=== PATIENT | female | born 1950 | race Caucasian/White ===

== ENCOUNTER → 2020-12-11 11:04 | Outpatient (CLI) | payer OTHER, SELFPAY ==
--- NOTE | ~2020-12-11 | DEXA_ITS ---
Bone Density Report Name: Christa Guajardo Age: 69 Sex: Female Ethnicity: White Date of : 1950 Indication: postmenopausal; screening for osteoporosis; height loss; Referring Provider: CATHRYN GREER D.O. Study: Bone densitometry was performed. Exam Date: December 11, 2020 Accession number: [id number] Bone Density: Region BMD T-score Z-score Classification AP Spine (L1, L2) 1.280 2.7 4.6 Normal Femoral Neck (Left) 0.914 0.6 2.3 Normal Total Hip (Left) 1.179 1.9 3.4 Normal Femoral Neck (Right) 0.900 0.5 2.2 Normal Total Hip (Right) 1.134 1.6 3.0 Normal Total Hip Mean 1.157 1.8 3.2 Normal World Health Organization criteria for BMD impression classify patients as: Normal (T-score at or above -1.0), Osteopenia (T-score between -1.0 and -2.5), or Osteoporosis (T-score at or below -2.5). 10-year Fracture Risk: FRAX not reported because: All T-scores for Spine Total, Hip Total, Femoral Neck at or above -1.0 Previous Exams: Region Exam Age BMD T-score BMD Change BMD Change Date g/cm2 vs Baseline vs Previous AP Spine(L1, L2) 12/11/2020 69 1.280 2.7 -0.056* -0.056* 02/11/2012 61 1.336 3.2 Total Hip(Left) 12/11/2020 69 1.179 1.9 -0.016 -0.016 02/11/2012 61 1.196 2.1 Total Hip(Right) 12/11/2020 69 1.134 1.6 -0.025 -0.025 02/11/2012 61 1.159 1.8 *Denotes significance at 95% confidence level, LSC for AP Spine = 0.022 g/cm2, LSC for Total Hip = 0.027 g/cm2 Clinical Information Provided by Patient: Has used the following medications: Calcium Patient maximum height was 70.50 Menopause Age: 56 No regular weight bearing exercise Does not regularly consume dairy products Drinks caffeinated beverages Onset of menses at age 14 Number of children 3 Impression: The patient has normal bone mass. The BMD for the AP Spine(L1, L2) decreased, changing by -0.056 since the last DXA exam. Discussion: LOW RISK OF FRACTURE; BONE DENSITY IS WELL ABOVE THE MINIMUM DESIRABLE LEVEL AND ABOVE AVERAGE FOR AGE AND SEX AT ALL SKELETAL SITES TESTED. This person's bone density is above expected limits for age and sex. This is rarely clinically significant, but should be pursued if there are significant musculoskeletal complaints. The patient should follow a healthful lifestyle (good nutrition with adequate calcium and vitamin D, and appropriate weight-bearing exercise). Follow-Up: Consider re
== END ==
PROVIDERS: PCP Internal Medicine; Visit Provider Internal Medicine
DX: Z78.0 Asymptomatic menopausal state (principal)
CPT/HCPCS: 77080

== ENCOUNTER 2023-04-21 06:52 | Emergency (ER) | payer OTHER, SELFPAY ==
[2023-04-21] VITALS (19 sets, daily range): BP systolic 117–136; BP diastolic 56–68; PULSE 60–79; RESP 10–20; TEMP 36.7; O2SAT 94–100
--- NOTE | ~2023-04-21 | XR_ITS ---
EXAMINATION: XR chest 2V DATE: 04/21/2023 07:42 INDICATION: Shortness of breath. Cough. TECHNIQUE: Frontal and lateral views of the chest were obtained. COMPARISON: Chest 2 views 04/05/2017 FINDINGS: The chest demonstrates clear lungs without pneumonia, pleural effusion, or pneumothorax. Th e heart size is normal. Surgical clips in the right upper quadrant are likely from cholecystectomy. IMPRESSION: 1. No acute cardiopulmonary disease. Reviewed, dictated and finalized at location A.
--- NOTE | ~2023-04-21 | CT_ITS ---
Clinical Indication: Shortness of breath CT Scan of the Chest with Contrast: Technique: Contiguous sections were acquired throughout the chest after intravenous administration of 100 cc of Omnipaque 350. Dose reduction technique was used on this scan by utilizing automated expos ure control and iterative reconstruction technique. The dose-length product (DLP) was 788.83 mGy-cm. COMPARISON: 11/22/2010 Findings: There is no evidence of any significant mediastinal, hilar or axillary lymphadenopathy. There is no f illing defect in the pulmonary arterial tree to suggest pulmonary embolus. There is no evidence of ao rtic dissection or aneurysm. There is no evidence of pleural or pericardial effusion. There are focal areas of nodularity/groundglass opacities in the infrahilar left lower lobe, in focal ly in the left upper lobe, suggestive of infectious process. There is probable involvement in the rig ht middle lobe as well. Images through the upper abdomen reveal hepatic cysts. Impression: No evidence of pulmonary embolus, aortic dissection, or aortic aneurysm. Focal areas of irregular nodularity/ground glass opacity in the left lower lobe, left upper lobe, rig ht middle lobe, most consistent with infectious process. Reviewed, dictated and finalized at location . Impression: No evidence of pulmonary embolus, aortic dissection, or aortic aneurysm. Focal areas of irregular nodularity/ground glass opacity in the left lower lobe , left upper lobe, right middle lobe, most consistent with infectious process.
--- NOTE | 2023-04-21 07:10 | ECG_ITS ---
Measurements Intervals Gerlach Rate: 63 P: 60 NJ: 192 QRS: 25 QRSD: 102 T: 35 QT: 392 QTc: 403 Interpretive Statements SINUS RHYTHM BASELINE ARTIFACT- I, II, III, AVR, AVL, AVF NORMAL ECG NO PREVIOUS ECG AVAILABLE FOR COMPARISON Electronically Signed On 04-21-2023 8:12:23 CDT by Brad Steele D.O.
[2023-04-21 08:15] LABS: Basophils Absolute Auto 0.1 K/mm3 (0.0-0.1); Basophils Percent Auto 0.5 % (0.2-1.2); Eosinophils Absolute Auto 0.2 K/mm3 (0-0.3); Eosinophils Percent Auto 2.3 % (0-4.4); Hematocrit 33.2 % (37.0-47.0); Hemoglobin 9.8 g/dL (12.0-15.0); Immature Granulocyte Absolute 0.06 K/mm3 (0.00-0.031); Immature Granulocyte Percent A 0.6 % (0-0.5); Lymphocytes Absolute Auto 0.88 K/mm3 (0.9-3.2); Mean Corpuscular HGB Conc 29.5 g/dl (32-36); Mean Corpuscular Hemoglobin 27.5 pg (26-34); Mean Corpuscular Volume 93.3 fl (80-100); Mean Platelet Volume 9.3 fl (7.4-10.4); Monocytes Absolute Auto 0.9 K/mm3 (0.1-0.6); Monocytes Percent Auto 9.1 % (2.6-8.5); Neutrophils Absolute Auto 7.7 K/mm3 (1.3-6.7); Neutrophils Percent Auto 78.5 % (45.5-73.1); Platelet Count Result 240 k/mm3 (150-375); Red Blood Count 3.56 M/mm3 (4.2-5.4); Red Cell Distribution Width 16.6 % (11.5-14.5); White Blood Count 9.8 K/mm3 (4.5-10.0)
[2023-04-21 08:25] LABS: Alanine Aminotransferase 19 U/L (6-35); Albumin Level 4.3 g/dL (3.5-5.1); Alkaline Phosphatase 69 U/L (38-126); Anion Gap 5 mmol/L (8-16); Aspartate Amino Transferase 25 U/L (14-36); Bilirubin,Total 1.5 mg/dL (0.2-1.3); Blood Urea Nitrogen 14 mg/dL (7-17); Calcium 9.2 mg/dL (8.4-10.2); Carbon Dioxide 30 mmol/L (22-30); Chloride 105 mmol/L (98-107); Estimated CRCL calculation 93 ml/min; Estimated Glomerular Filt Rate > 60; Glucose 109 mg/dL (65-110); Potassium 3.8 mmol/L (3.4-5.0); Sodium 140 mmol/L (137-145)
[2023-04-21 08:26] LABS: Prothrombin Time 13.2 Seconds (11.1-14.7)
[2023-04-21 08:34] LABS: Anisocytosis 1+ (NORMAL); Hypochromasia 1+ (NORMAL); Microcytosis 1+ (NORMAL); Platelet Estimate Adequate (Adequate)
[2023-04-21 08:35] LABS: NT Pro B Type Natriuretic Pept 194 pg/mL (19.9-100); Schistocytes None Seen (NORMAL); Troponin I < 0.012 ng/mL (0.000-0.034)
[2023-04-21] MEDS: predniSONE 20 MG TABLET 60 MG PO (08:39)
[2023-04-21 08:41] LABS: Partial Thromboplastin Time 21.5 SECONDS (22.3-36.8)
[2023-04-21 08:47] LABS: D Dimer 1.12 ug/mL (<0.48)
[2023-04-21] MEDS: IPRATROPIUM BR 0.02% INH SOLN 0.5 MG/2.5 ML VIAL INHALATION (09:04)
[2023-04-21] MEDS: ALBUTEROL SULFATE NEB 2.5 MG/3 ML INH INHALATION (09:04)
--- NOTE | 2023-04-21 10:02 | ED.SOB ---
HPI - SOB/Dyspnea General Chief Complaint: Shortness of Breath/Dyspnea Stated Complaint: shortness of breath, cough Time Seen by Provider: 04/21/23 08:25 Source: patient, RN notes reviewed and old records reviewed Mode of arrival: ambulatory Limitations: no limitations History of Present Illness HPI Narrative: This is a 72 year old female with history of hypertension, colon cancer s/p colectomy, chemo who presents for evaluation of productive cough and shortness of breath. She reports cough with clear to green sputum for a few days. SHe also reports shortness of breath with exertion. She denies chest pain, fever, chills, nausea or vomiting . She denies calf pain or history of PE. She denies lung disease and she reports history of smoking cigarettes years ago. Related Data Home Medications Medication Instructions Recorded Confirmed calcium carbonate 600 mg-vitamin cap PO DAILY 04/03/21 05/27/22 D3 12.5 mcg (500 unit) capsule (Calcium 600 with Vitamin D3) cholecalciferol (vitamin D3) 25 25 mcg PO DAILY 04/03/21 05/27/22 mcg (1,000 unit) capsule omeprazole 20 mg tablet,delayed 20 mg PO DAILY 02/04/23 02/04/23 release Allergies Allergy/AdvReac Type Severity Reaction Status Date / Time morphine Allergy Mild Swelling Verified 04/21/23 06:55 Penicillins Allergy Mild Itching Verified 04/21/23 06:55 Review of Systems Constitutional: Constitutional: Denies weakness Cardiovascular: Cardiovascular: Denies syncope, Denies rapid heart rate, Denies irregular heart rhythm, Denies leg edema and Denies dyspnea Respiratory: Respiratory: Denies chest congestion, Reports cough, Denies hemoptysis, Denies excessive phlegm production and Reports dyspnea Gastrointestinal: Gastrointestinal: Denies abdominal pain, Denies hematochezia, Denies diarrhea and Denies vomiting Genitourinary: Genitourinary: Denies hematuria and Denies dysuria Musculoskeletal: Musculoskeletal: Denies joint swelling, Denies loss of height and Denies muscle weakness Neurologic: Denies syncope, Denies focal weakness and Denies weakness FOR[facility]LY [facility] Past Medical History Medical History (Updated 04/21/23 @ 11:12 by Shu Harris MD) Essential (primary) hypertension Hyperlipidemia, unspecified Impaired glucose tolerance (oral) Obstructive sleep apnea (adult) (pediatric) On custodial drug therapy Screening for breast cancer Screening for colon cancer Screening for osteoporosis Thyroid nodule Vitamin D deficiency, unspecified Surgical History Surgical History (Updated 04/21/23 @ 10:41 by Shu Harris MD) S/P colectomy Family History Family History Father Hypertension Mother Family history of malignant neoplasm of ovary, Onset Age: 85 Social History Social History Smoking packs per day: 1 Smoking cigarettes per day: 20.0 Years smoked: 20 Smoking pack-years: 20.00 Smoking status: Former smoker Tobacco type: cigarettes Second hand tobacco smoke exposure: No Smoking end date: 10/06/10 Alcohol intake: current Drinks per week: 5 Substance use: never Substance use type: does not use Exam Const: General: alert Orientation/consciousness: patient oriented x3 Limitations: no limitations HENMT: Head: normal to inspection Mouth: Yes Normal oral and palatal mucosa present Throat: posterior oropharynx normal and uvula midline Eyes: EOM: EOMs intact bilaterally Neck: Neck: normal visual inspection Chest: Chest palpation & inspection: normal inspection of the chest Resp: Effort & Inspection: normal respiratory effort Auscultation: wheezes expiratory wheezes and throughout Cardio: Rate: regular rate Rhythm: regular rhythm Heart sounds: no murmurs GI: GI Palp: Yes Soft to palpation, No Tenderness to palpation present (GI), No Guarding due to palpation present (GI) and No Rigid due to palpation Ausculta
== END 2023-04-21 11:24 | disposition home or self-care (01) ==
PROVIDERS: Emergency Provider General Practice; PCP Nurse Practitioner
DX: J20.9 Acute bronchitis, unspecified (principal); I10 Essential (primary) hypertension; G47.30 Sleep apnea, unspecified
CPT/HCPCS: 36415; 71046; 71275; 80053; 83880; 84484; 85025; 85380; 85610; 85730; 93005; 94640; 99284; J7512; Q9967

== ENCOUNTER 2025-01-25 13:40 | Outpatient (CLI) | payer OTHER, SELFPAY ==
--- NOTE | ~2025-01-25 | DEXA_ITS ---
Bone Density Report Name: ERNST KERNS Age: 74 Sex: Female Ethnicity: White Date of : 1950 Indication: postmenopausal; screening for osteoporosis; height loss; cancer; Referring Provider: BERYL TOLLIVER Study: Bone densitometry was performed. Exam Date: January 25, 2025 Accession number: [id number] Bone Density: Region BMD T-score Z-score Classification AP Spine(L1-L4) 1.671 5.7 8.0 Normal Femoral Neck (Left) 0.855 0.1 2.0 Normal Total Hip (Left) 1.120 1.5 3.1 Normal Femoral Neck (Right) 0.840 -0.1 1.9 Normal Total Hip (Right) 1.039 0.8 2.5 Normal Total Hip Mean 1.080 1.2 2.8 Normal World Health Organization criteria for BMD impression classify patients as: Normal (T-score at or above -1.0), Osteopenia (T-score between -1.0 and -2.5), or Osteoporosis (T-score at or below -2.5). 10-year Fracture Risk: FRAX not reported because: All T-scores for Spine Total, Hip Total, Femoral Neck at or above -1.0 Clinical Information Provided by Patient: Has used the following medications: Vitamin D, Calcium Has the following medical conditions: Cancer Patient maximum height was 71 Menopause Age: 54 No regular weight bearing exercise Drinks caffeinated beverages Onset of menses at age 13 Number of children 3 Impression: The patient has normal bone mass. Discussion: BONE DENSITY IS ABOVE THE MINIMUM DESIRABLE LEVEL AT ALL SKELETAL SITES TESTED. This patient?s bone mineral density is above the minimum desirable level (T-score -1.0 or better) at all sites measured. The patient should follow a healthful lifestyle (good nutrition with adequate calcium and vitamin D, and appropriate weight-bearing exercise). Follow-Up: Consider repeating this study in 5 years or sooner if there is some new clinical indication. Reported by: JARRED on 01/25/2025 2:24:00 PM. Reviewed, dictated and finalized at location A.
--- OUTSIDE RECORDS SUMMARY | 2025-01-25 15:36 | XMS_ITS | Continuity of Care Document ---
Author Organization [facility] Address [address] [facility] [address] [place] [address] Phone Care Team Providers Care Display Fabricator Name Role Phone Lev MANN, Betzy Unavailable Unavailable Allergies, Adverse Reactions, Alerts Substance Reaction Status Criticality PENICILLIN Active No Information morphine Active No Information Medications Medication Instructions Dosage Effective Dates (start - stop) Status Comments diltiazem CD 360 mg capsule,extended release 24 hr TAKE 1 CAPSULE BY MOUTH DAILY - Active lisinopril 20 mg tablet - Active pravastatin 40 mg tablet TAKE 1 TABLET BY MOUTH EVERY DAY - Active calcium + d3 (unknown strength) Not Available - Active iron (unknown strength) Not Available - Active vitamin b12 (unknown strength) Not Available - Active CORTISONE ACETATE (unknown strength) take 1 tablet by oral route 3 times every day with food Not Available - Active prednisolone acetate 1 %-bromfenac 0.075 % eye drops,suspension instill 1 drop in operatvive eye BID starting week 3 after surgery and continue for 2 weeks - No Longer Active 4ml replace acetate with phosphate . Procedures Procedure Date OFFICE/OUTPATIENT VISIT, EST OFFICE/OUTPATIENT VISIT, EST POSTOP FOLLOW-UP VISIT POSTOP FOLLOW-UP VISIT CATARACT SURG W/IOL, 1 STAGE Toric 1 & Toric 2 POSTOP FOLLOW-UP VISIT POSTOP FOLLOW-UP VISIT Sep-14-2023 CATARACT SURG W/IOL, 1 STAGE Toric 1 & Toric 2 OFFICE/OUTPATIENT VISIT, NEW OPSCPY EXTND ON/MAC DRAW OPHTHALMIC BIOMETRY OPHTHALMIC BIOMETRY REFRACTION Advance Directives Directive Yes / No Effective Date File Name No Information Encounters Encounter Description Practice Location Reason(s) For Visit Diagnoses Date Provider Providers Copied on Encounter OFFICE/OUTPA TIENT VISIT, EST [facility], [address] [place] [address], [place], [place], [id number], [place] tel:[phone] OPH CONSULT MIYA GOMES Pseudophakia (chief complaint) Presence of intraocular lensAnterior basement membrane dystrophy of left eyePCO (posterior capsular opacification ), bilateralOpti c atrophyDermat ochalasis of left lower eyelid Apr-0 - 5 [facility] Betzy. [address], [address], [place], [address], [place]. tel:[phone] Referring Provider: Family Leslie Sharpe OFFICE/OUTPA TIENT VISIT, EST [facility], [address] [place] [address], [place], [place], [id number], [place] tel:[phone] OPH CONSULT MIYA GOMES blurry vision (chief complaint) Optic atrophyPresen ce of intraocular lensPCO (posterior capsular opacification ), bilateralAnte rior basement membrane dystrophy of left eye Apr-0 - 4 [facility] Betzy. [address], [place], [address], [place]. tel:[phone] Referring Provider: Family Leslie Sharpe [facility], [address] [place] [address], [place], [place], [id number], [place] tel:[phone] OPH CONSULT MIYA GOMES post op (chief complaint) Presence of pseudophakia Oct-0 - 3 Bruce Hunter. [address] [place] [address], [address], [place], [address], [place]. tel:[phone] Referring Provider: Family Leslie Sharpe [facility], [address] [place] [address], [place], [place], [id number], [place] tel:[phone] OPH CONSULT MIYA GOMES 1 Day PO (chief complaint)Bum p (chief complaint) No Information Sep-2 3 Bruce Hayes [address] [place] [address], [address], [place], [address], [place]. tel:[phone] Referring Provider: Family Leslie Sharpe [facility], [address] [place] [address], [place], [place], [id number], [place] tel:[phone] [facility] No Information Sep-2 3 Quinn Yi. [address], [place], [place], [id number], [place]. tel:[phone] Referring Provider: Family Leslie Sharpe [facility], [address] [place] [address], [place], [place], [id number], [place] tel:[phone] OPH CONSULT MIYA GOMES No Information Sep-2 3 Quinn Yi. [address] [facility], [address], [place], [place], [id number], [place]. tel:[phone] Referring Provider: Family Leslie Sharpe [facility], [address] [place] [address], [place], [place], [id number], [place] tel:[phone] OPH CONSULT MIYA GOMES Post-Op (chief complaint) No Information Sep-2 3 Bruce Hayes [address] [place] [address], [address], [place], [address], [place]. tel:[phone] Referring Provider: Family Leslie Sharpe [facility], [address] [place] [address], [place], [place], [id number], [place] tel:[phone] OPH CONSULT MIYA GOMES post op (chief complaint) No Information Sep-1 3 Bruce Hayes [address] [place] [address], [address], [place], [address], [place]. tel:[phone] Referring Provider: Family Leslie Sharpe [facility], [address] [place] [address], [place], [place], [id number], tel:[phone] [facility] No Information 3 Quinn Yi. [address], [place], [place], [address], [place]. tel:[phone] Referring Provider: Family Leslie Sharpe [facility], [address] [place] [address], [id number], tel:[phone] OPH CONSULT MIYA GOMES No Information Sep-0 3 Quinn Yi. [address], [address], [place], [place], [id number], [place]. tel:[phone] Referring Provider: Family Leslie Martinez. OFFICE/OUTPA TIENT VISIT, [facility], [address] [place] [address], [id number], tel:[phone] OPH CONSULT MIYA GOMES Cat Sx (chief complaint) Dermatochalas is of left lower eyelidDermato chalasis of left upper eyelidDermato chalasis of right lower eyelidDermato chalasis of right upper eyelidAge-rel ated nuclear cataract, bilateralKera toconjunctivi tis sicca, not specified as Sjogren's, bilateralOthe r vitreous opacities, bilateral 3 Quinn Yi. [address], [address], [place], [place], [id number], [place]. tel:[phone] Referring Provider: Family Friends AMikki Family History Family Member Type Diagnosis Age At Onset Father Problem hypercholesterolemia Problem Family history of malignant melanoma Payers Payer name Insurance type Covered constitution party ID Authorbhumi delacruz(s) Consociate CI [id number] Social History Type Description Quantity Date Captured Comments Alcohol Use Details Unknown Caffeine Use Details Unknown Tobacco Use Status Ex-cigarette smoker 025 Smoking Status Former smoker Smoking Tobacco Use Details Cigarette: Age Stopped: 46 Cigarette: No Details Available Sex Female Vital Signs Date / Time: Height Weight BMI Pulse Rate Blood Pressure Temperature Respiratory Rate Body Surface Area Head Circumference Head Circ. Percentile Wt./Cj. Percentile BMI percentile Pulse Ox Inhaled Ox 9:23 AM 71.00 in 97.522 kg (215.00 lbs) 29.9 9 kg/m gabo (2) Chief Complaint And Reason For Visit From encounter dated '01/10/2025 09:10'. Pseudophakia (chief complaint). Description: The 74 year old patient presents for evaluation of Pseudophakia. Vision seems stable. Uses OTC readers. Eyes are dry. Uses OTC gtts for dryness. Has trouble with glare around lights. Things seem more dim OS>OD.-Pt declined new MRx today s/p PCIOLToric DV OU 2022 JGh/o Optic atrophy OSh/o ABMD OS Reason For Referral Reason For Referral No Information Plan Of Treatment Date Type Action Status Goal Tobacco cessation counseling completed Goal Tobacco cessation counseling completed Goal Tobacco cessation counseling completed Appointment ERNST KERNS BOOKED History Of Present Illness Encounter Date Complaint History Of Prese nt Illness Pseudophakia The 74 year old patient presents for evaluation of Pseudophakia. Vision seems stable. Uses OTC readers. Eyes are dry. Uses OTC gtts for dryness. Has trouble with glare around lights. Things seem more dim OS>OD.-Pt declined new MRx today s/p PCIOL Toric DV OU 2022 JGh/o Optic atrophy OSh/o ABMD OS blurry vision The 73 year old female presents for evaluation of blurry vision OU. pt had cat sx a couple of months ago vision still seems blurry. pt wears OTC readers, but cant see directly in front of her. was told to come back here after 6 month to see if she needs glasses. pt is twisting reading material away from the light.OS is foggy/ cloudy, OD get blurry throughout the day, dry, no excessive, no itchiness, no grittiness, no foreign body sensation.ATs PRN post op 1 week PO OD 2nd eye toric distance. Patient continues to use Ijfr-Nelt-Slyz TID OD. Patient states that vision OD has been doing well, seeing better OD than OS. Patient denies issues with pain/discomfort. Patient using ATs PRN OU, usually an hour after using her medicated gtts.OS 1st eye toric distance done 06/18/2023.Patient referred by Dr. Das. 1 Day PO The 72 year old female presents for evaluation of 1 Day PO OD Toric DV. Vision seems better since Sx, but still slightly blurry. OD feels a little gritty. Pt thinks the numbing had worn off by the end Sx. Noticing some halos OU. Pt was using [facility] AT's Lubricant Eye Drops 2-3x's a day OU, but has not used since Cataract Sx. -Pt wants to know what readers to use for Intermediate and Near vision Using Wdtk-Riho-Cpwl as [id number] eye OS Toric DV was done 06/18/[address] Das Bump The patient is p resent for evaluation of Bump. For last 2-3 years pt gets a bump on her OS temporally. It grows and then goes away. It itches sometimes. Since Cataract it has stayed the same size. Post-Op Additional infor mation: S/p PC-IOL Toric/Distance OS 06/18/23 2nd eye scheduled for 07/02/23gtt Compound TID OS AFTs ORN OU. post op The 72 year old female presents for 1 day post op of 1st cat sx, OS-Toric, vision is okay-can see out of it but still foggy/not distinguished, denies pain/discomfort but does feel like something is there, eyes are feeling okay today-it's bright OD scheduled 07/02/[address] Ball, STD/DV vs ToricContinue [id number] and AT, has a few questions about dropsReferred by Dr. Das Cat Sx The 72 year old female presents for evaluation of Cat Sx OU. Pt complains of blurrier vision over the last few months, constant, getting worse. She complains that she has a much harder time seeing at night, notes a lot of glare with headlights, not comfortable driving at night. She denies any other vision trouble, not using any eyedrops. Referred by FriendsTopo, IOL, and Mac OCT Ordered. 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 Impression/Plan Related to PCO ( posterior capsular opacification), bilateral Impression/Plan 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 Impression/Plan Related to Prese nce of intraocular lens Impression/Plan Related to Prese nce of pseudophakia Impression/Plan Related to Age-r elated nuclear cataract, right eye Impression/Plan Related to Prese nce of intraocular lens Impression/Plan Related to Prese nce of intraocular lens Impression/Plan Related to Age-r elated nuclear cataract, bilateral Impression/Plan Related to Makanda tochalasis of right upper eyelid Impression/Plan Related to Makanda tochalasis of right lower eyelid Impression/Plan Related to Makanda tochalasis of left upper eyelid Impression/Plan Related to Makanda tochalasis of left lower eyelid Impression/Plan Related to Other vitreous opacities, bilateral Impression/Plan Related to Kerat oconjunctivitis sicca, not specified as Sjogren's, bilateral Assessments Type Assessment Date assessment Presence of intraocular lens Jan impression Presence of intraocular lens: Z9 6.1.2022 JG Toric Distance OU assessment Anterior basement membrane dystr ophy of left eye impression Anterior basement membrane dystr ophy of left eye: H18.522. assessment PCO (posterior capsular opacific ation), bilateral impression PCO (posterior capsular opacific ation), bilateral: H26.493. assessment Optic atrophy impression Optic atrophy: H47.2 0. LeftMild nerve pallor after discussion with pt presumed childhood trauma BCVA 20/30- OS assessment Dermatochalasis of left lower ey elid impression Dermatochalasis of left lower ey elid: H02.835. Patient Care Teams Name Effective Dates (start - stop) Status Members No Information
--- OUTSIDE RECORDS SUMMARY | 2025-01-25 15:36 | XMS_ITS | Patient Health Record ---
Author Organization [facility] Address [address] [facility] [address] [place] [address] Care Team Providers Care Casino Enforcement Agent Name Role Phone Robin Diaz DO Primary Care Provider UnavailGaston Norman Unavailable [phone] Trae Oliveira Unavailable Unavailable Allergies Allergen (clinical drug ingredient) Drug/Non Drug Allergy documented on EMR Reaction Allergy Type Onset Date Status Penicillin Shortness of Breath Drug Allergy active Results Component Value Reference Range Notes Pathology Report Reviewed date:09/19/2024 04:49:18 PM Interpretation: Performing Lab: Notes/Report: DIAGNOSES A. Rectum Polyp, Polypectomy: -Hyperplastic polyp. CLINICAL HISTORY High risk screening for colorectal malignant neoplasm due to personal history of colon cancer. One 4 mm polyp in the rectum. GROSSING DESCRIPTION A. The specimen is received in a Formalin-filled container labeled with the patient's name and designated Rectum Polyp It contains 1 fragment of brennan tissue that measures 3x2x1 mm. The specimen was entirely submitted into a single cassette for processing. MICROSCOPIC DESCRIPTION Complete 100 microscopic examination is performed. The findings are included in the diagnosis rendered. Specimen A was evaluated with H&E stain. Textual Pathology Report SEE NOTES Reason For Referral No Information Medications Medication SIG (Take, Route, Frequency, Duration) Notes Start Date End Date Status Na Sulfate-K Sulfate-Mg Sulf 17.5-3.13-1.6 GM/177ML ML Orally Twice a day for 1 days 05/13/2024 Active Problems Problem Type SNOMED Code ICD Code Onset Dates Problem Status W/U Status Risk Notes Problem 05376555 Rectal polyp (K62.1) Active confirmed Problem 503547488 Colon cancer screening (Z12.11) Active confirmed Problem 947755313 History of colonic polyps (Z86.010) Active confirmed Problem Diverticulosis of colon (002368081) Diverticulosis of colon (K57.30) Active confirmed Problem 623006566 History of colon cancer (Z85.038) Active confirmed Problem 313501116 Benign colon polyp (K63.5) Active confirmed Problem 70072885 Colon ulcer (K63.3) Active confirmed Problem 729679599720394 Primary adenocarcinoma of ascending colon (C18.2) Active confirmed Encounters Encounter Location Date Provider Diagnosis [facility] [address] [place] [address] 09/01/2024 Gaston Lazo Colon cancer screeni ng Z12.11 ; History of colon cancer Z85.038 ; Rectal polyp K62.1 and Diverticulosis of colon K57.30 [facility], [address] [place] [address] 05/10/2024 Gaston Lazo [address] [place] [address] 05/10/2024 Gaston Lazo [address] [place] [address] 09/19/2024 Gaston Lazo Assessments Encounter Date Diagnosis (ICD Code) Assessment Notes Treatment Notes Treatment Clinical Notes Section Notes 09/01/2024 Colon cancer screening (ICD-10 - Z12.11) 09/01/2024 History of colon cancer (ICD-10 - Z85.038) 09/01/2024 Rectal polyp (ICD-10 - K62.1) 09/01/2024 Diverticulosis of colon (ICD-10 - K57.30) Plan Of Treatment Pending Test Test Name Order Date CBC With Differential/Platelet CT Abdomen/Pelvis w/ IV & Oral Contrast 07/06/2022 Insurance Providers Payer Name Payer Address Payer Phone Subscriber Number Group Number Insured Name Patient Relationship to Insured Coverage Start Date Coverage End Date [facility] [address] [place] [phone] [id number] Christa Guajardo Self - patient is the insured Medical (General) History Medical History History ICD Code Hypertension Colon Cancer Colon Polyps GERD Surgical History Surgery Date(Month/Year) Cholecystectomy Cataract Surgery Colon / Bowel Surgery Eye Surgery
--- OUTSIDE RECORDS SUMMARY | 2025-01-25 15:36 | XMS_ITS | Clinical Summary ---
Author Organization [employer] [facility] Address [address] [place] [address] Care Team Providers Care Medical Technologist Generalist Name Role Phone Robin Diaz DO Primary Care Provider [phone] Allergies Active Allergy Reactions Criticality Noted Date Comments Morphine Itching 12/14/2018 Penicillins Itching 12/14/2018 Medications pravastatin (PRAVACHOL) 40 mg tablet Take 40 mg by mouth daily with supper. Active lisinopril (PRINIVIL) 20 mg tablet Take 20 mg by mouth daily. Active diltiaZEM (CARDIZEM CD) 360 mg Controlled Delivery 24 hour capsule Take 360 mg by mouth daily. Active cholecalciferol, Vitamin D3, (VITAMIN D3) 1,000 unit Capsule Take by mouth daily. Active calcium as carbonate (CALTRATE) 1,500 mg (600 mg elemental) Tablet Take 600 mg by mouth. Active omeprazole (PriLOSEC) 20 mg Capsule, Delayed Release(E.C.) Take 20 mg by mouth daily. Active albuterol (PROVENTIL,VENTOL IN) 0.63 mg/3 mL Solution for Nebulization Take 0.63 mg by inhalation one time only. Active LORazepam (ATIVAN) 1 mg tabletIndications :Cancer of ascending colon (CMS/HCC) Take 1 to 2 tablets 1 hour before scan. 2 Tablet 3 Active ibuprofen (MOTRIN) 600 mg tablet Take 1 Tablet (600 mg) by mouth every 8 hours as needed for Pain, Mild. 90 Tablet 2 4 Active ferrous fumarate (FERRETTS) 325 mg (106 mg iron) Tablet Take 325 mg by mouth. Active cyanocobalamin (VITAMIN B-12) 50 mcg Tablet Take 50 mcg by mouth daily. Active Active Problems Problem Noted Date Diagnosed Date Primary osteoarthritis of right knee 09/21/2024 Primary osteoarthritis of left knee 09/21/2024 Malignant neoplasm of ascending colon 09/05/2022 Cancer of ascending colon 08/12/2022 Encounters Date Type Department Care Team Description 01/04/2025 External Device Data STL ABSTRACTION Provider, Abstract 12/24/2024 Prep for Surgery [facility] at the [facility] [address] [place] [address] Jeramy Menendez MD Primary osteoarthritis of left knee (Primary Dx) 12/17/2024 9:45 AM CDT Office Visit [facility] the [facility] [address] [place] [address] Jeramy Menendez MD Primary osteoarthritis of right knee (Primary Dx); Primary osteoarthritis of left knee 12/17/2024 Orders Only [facility] [address] [place] [address] Jeramy Menendez MD Primary osteoarthritis of left knee (Primary Dx) 12/17/2024 Orders Only [facility] at the [facility] [address] [place] [address] Jeramy Menendez MD Primary osteoarthritis of left knee (Primary Dx) 12/17/2024 Chart Note [facility] [address] [place] [address] Jeramy Menendez MD 12/13/2024 9:45 AM CDT Office Visit [facility] Oncology and Hematology [facility] [address] [place] [address] Katelin Benítez MD Cancer of ascending colon (CMS/HCC) (Primary Dx) 12/13/2024 9:07 AM CDT - 12/13/2024 11:59 PM CDT Hospital Encounter [facility] Laboratory Services [facility] [address] [facility] [place] [address] Katelin Benítez MD Discharge Disposition: Home or Self Care 10/28/2024 External Device Data STL ABSTRACTION Provider, Abstract from Last 3 Months Family History Medical History Relation Name Comments Hypertension Father Stroke Mother Relation Name Status Comments Father Alive Mother Social History Tobacco Use Types Packs/Day Years Used Date Smoking Tobacco: Former Cigarettes 1 20 0 12/14/1990 - 12/14/2010 Smokeless Tobacco: Never Tobacco Cessation:Counseling Given: Not Answered Alcohol Use Standard Drinks/Week Comments Yes 0 (1 standard drink = 0.6 oz pur e alcohol) few drinks a week Feeling Safe Answer Date Recorded Are you in a relationship wi th someone who hurts you emotionally and/or physically? No 04/11/2023 Comments No Sex and Gender Information Value Date Recorded Sex Assigned at Not on file Legal Sex Female 11:42 PM CDT Gender Identity Not on file Sexual Orientation Not on file Last Filed Vital Signs Vital Sign Reading Time Taken Comments Blood Pressure 124/62 12/13/2024 9:39 AM CDT Pulse 88 12/13/2024 9:39 AM CDT Temperature 36.8 C (98.3 F) 12/13/2024 9:39 AM CDT Respiratory Rate 18 12/13/2024 9:39 AM CDT Oxygen Saturation 92% 12/13/2024 9:39 AM CDT Inhaled Oxygen Concentration - - Weight 102.3 kg (225 lb 8 oz) 12/13/2024 9:39 AM CDT Height 180.3 cm (5' 11 ) 12/13/2024 9:39 AM CDT Body Mass Index 31.45 12/13/2024 9:39 AM CDT Plan of Treatment Upcoming Encounters Date Type Department Care Team (Latest Contact Info) Description 02/07/2025 9:00 AM CDT Appointment [facility] [address] [place] [address] 03/03/2025 9:33 AM CDT Hospital Encounter [facility] Operating Room [address] [facility] [place] [address] Jeramy Menendez MD [address] [facility] [address] [place] [address] Primary osteoarthritis of left knee 03/03/2025 9:33 AM CDT - 03/03/2025 11:50 AM CDT Surgery [facility] Operating Room [address] [place] [address] Jeramy Menendez MD [address] [facility] [address] [place] [address] LEFT KNEE ARTHROPLASTY TOTAL REPLACEMENT 03/16/2025 8:30 AM CDT Office Visit [facility] [address] [facility] [address] [place] [address] Jeramy Menendez MD [address] [facility] [address] [place] [address] 06/13/2025 9:00 AM CDT Appointment [facility] Imaging Services [facility] [address] [place] [address] Katelin Benítez MD [address] [facility] [address] [place] [address] 06/16/2025 9:35 AM CDT Office Visit [facility] Oncology and Hematology [facility] [address] [facility] [address] [facility] [place] [address] Katelin Benítez MD [address] [facility] [address] [place] [address] Scheduled Procedures Name Priority Associated Diagnoses Date/Ti me KNEE ARTHROPLASTY TOTAL REPLACEMENT Primary osteoarthritis of left knee 03/03/2025 9:33 AM CDT Health Maintenance Due Date Last Done Comments DTAP/TDAP/TD VACCINES (1 - Tdap) 12/17/1970 Lung Cancer Screening 12/17/2001 PNEUMOCOCCAL VACCINE 50+ YEARS (1 of 1 - PCV) 12/18/19 02 ZOSTER VACCINE (1 of 2) 12/17/2001 OSTEOPOROSIS SCREENING 12/17/2016 INFLUENZA VACCINE (#1) 2024 07/16/2023 BREAST CANCER SCREENING 09/09/2024 09/09/2023 RSV VACCINE (60+ or ) (1 - 1-dose 75+ series) 12/17/2026 Medical Devices Explanted Type Area Head Of Ethics And Compliance Device Identifier Shelf Expiration Date Model / Serial / Lot Port Powerport Clearvue 8fr Mri [id number] - [id number] Implanted:Qty: 1 on 09/13/2022 by Mauricio Kearns MD at [facility] Explanted:Qty: 1 on 04/11/2023 at [facility] Port [facility] [id number] 09/04/2023 [id number] / / [id number] Procedures Procedure Name Priority Date/Time Associated Diagnosis Comments COMPREHENSIVE METABOLIC PANEL Stat 12/13/2024 9:28 AM CDT Cancer of ascending colon (CMS/HCC) CBC WITH DIFFERENTIAL Stat 12/13/2024 9:28 AM CDT Cancer of ascending colon (CMS/HCC) CEA Routine 12/13/2024 9:28 AM CDT Cancer of ascending colon (CMS/HCC) MAMMO 3D KEITH SCREEN BILAT W OR WO CAD Routine 09/09/2023 7:14 AM OVEN BAKER Cancer of ascending colon (CMS/HCC) Breast cancer screening by mammogram from Last 3 Months or Most Recently Relevant to Health Maintenance Results * (ABNORMAL) CBC WITH DIFFERENTIAL (12/13/2024 9:28 AM CDT) WBC 5.5 4.0 - 9.8 K/uL 12/13/2024 9:44 AM CDT [facility]OR[facility] SERVICES [facility] RBC 3.91 3.90 - 4.90 M/uL 12/13/2024 9:44 AM CDT [facility]ORY [facility] HEMOGLOBIN 12.0 11.8 - 14.8 g/dL 12/13/2024 9:44 AM CDT [facility] SERVICES - [facility] HEMATOCRIT 39.4 35.5 - 44.0 % 12/13/2024 9:44 AM CDT [facility] [employer] - [facility] MCV 100.8(H) 82.0 - 99.0 fL 12/13/2024 9:44 AM CDT [employer] LABORATORY SERVICES - . [facility] MCH 30.7 27.2 - 32.6 pg 12/13/2024 9:44 AM CDT [facility] LABORATORY SERVICES - [facility] MCHC 30.5(L) 31.5 - 35.5 g/dL 12/13/2024 9:44 AM CDT [employer] LABORATORY SERVICES - [facility] RDW 14.7(H) 11.5 - 14.5 % 12/13/2024 9:44 AM CDT [employer] LABORATORY SERVICES - . [facility] RDW-STDEV 54.7(H) 37.1 - 48.7 fL 12/13/2024 9:44 AM CDT [facility] LABORATORY SERVICES - [facility] PLATELETS 265 140 - 350 K/uL 12/13/2024 9:44 AM CDT [facility] LABORATORY SERVICES - [facility] MPV 9.0(L) 9.3 - 12.4 fL 12/13/2024 9:44 AM CDT [facility] LABORATORY SERVICES - . [facility] NEUTROPHILS 70 % 12/13/2024 9:44 AM CDT [facility] LABORATORY SERVICES - . [facility] LYMPHOCYTES 17 % 12/13/2024 9:44 AM CDT [facility] LABORATORY SERVICES - . [facility] MONOCYTES 11 % 12/13/2024 9:44 AM CDT [facility] LAB[facility]ATORY SERVICES - . [facility] EOSINOPHILS 1 % 12/13/2024 9:44 AM CDT [facility] LABORATORY SERVICES - . [facility] BASOPHILS 1 % 12/13/2024 9:44 AM CDT [facility] LABORATORY SERVICES - . [facility] IMMATURE GRANULOCYTES 1 % 12/13/2024 9:44 AM CDT [facility] LABORATORY SERVICES - . [facility] Comment:IG (Immature Granulo cyte) count includes Metamyelocytes, Myelocytes, and Promyelocytes NEUTROPHIL ABSOLUTE 3.86 1.90 - 7.00 K/uL 12/13/2024 9:44 AM CDT [facility] LABORATORY SERVICES - . [facility] LYMPHOCYTE ABSOLUTE 0.95 0.70 - 4.50 K/uL 12/13/2024 9:44 AM CDT [facility] LABORATORY SERVICES - . [facility] MONOCYTE ABSOLUTE 0.59 0.10 - 1.30 K/uL 12/13/2024 9:44 AM CDT [facility]ATORY SERVICES - [facility] EOSINOPHIL ABSOLUTE 0.05 0.00 - 0.70 K/uL 12/13/2024 9:44 AM CDT [facility] SERVICES - [facility] BASOPHILS ABSOLUTE 0.04 0.00 - 0.20 K/uL 12/13/2024 9:44 AM CDT [facility] LABORATORY SERVICES - . [facility] IMMATURE GRANULOCYTES ABSOLUTE 0.03 0.00 - 0.03 K/uL 12/13/2024 9:44 AM CDT [facility] LABORATORY [facility] Blood Venipuncture / Unknown 12/13/2024 9:28 AM CDT 12/13/2024 9:38 AM CDT Katelin Benítez MD HEMATOLOGY ORDERABLES Final Resu lt Performing Organization Address City/[facility]/ZIP Co de Phone Number [facility] CLIA# [id number] [address] [place] [address] * CEA (12/13/2024 9:28 AM CDT) [facility] CEA 2.2 See Note: ng/mL [facility] Comment: Reference Range: Non-Smoker: <2.5 Smoker: <5.0 This test was performed using the Siemens chemiluminescent method. Values obtained from different assay methods cannot be used interchangeably. CEA levels, regardless of value, should not be interpreted as absolute evidence of the presence or absence of disease. Test Performed at: [facility] [address] [place] [address] Grace Redd MD Blood 12/13/2024 9:28 AM CDT 12/13/2024 10:29 AM CDT Katelin Benítez MD CHEMISTRY ORDERABLES Final Resul t [facility] [phone] [facility] [address] [place] [address] * COMPREHENSIVE METABOLIC PANEL (12/13/2024 9:28 AM CDT) SODIUM 141 136 - 145 mmol/L 12/13/2024 10:27 AM CDT [facility] LABORATORY SERVICES - . [facility] POTASSIUM 3.6 3.5 - 5.0 mmol/L 12/13/2024 10:27 AM CDT [facility]ORY [facility] - [facility] CHLORIDE 104 98 - 107 mmol/L 12/13/2024 10:27 AM CDT [facility] - [facility] CO2 26 22 - 29 mmol/L 12/13/2024 10:27 AM CDT [facility] - [facility] CALCIUM 9.1 8.6 - 10.2 mg/dL 12/13/2024 10:27 AM CDT [facility] - [facility] BUN 15 8 - 23 mg/dL 12/13/2024 10:27 AM T [facility]ORATORY SERVICES - . [facility] CREATININE 0.67 0.51 - 0.95 mg/dL 12/13/2024 10:27 AM T [facility]ORATORY SERVICES - . [facility] Comment:The GFR result is no t clinically significant on patients <18 or >70 years of age. GLUCOSE 99 74 - 99 mg/dL 12/13/2024 10:27 AM T [facility]ORATORY SERVICES - . [facility] TOTAL PROTEIN 6.8 6.7 - 8.6 g/dL 12/13/2024 10:27 AM [employer] [facility] - . [facility] ALBUMIN 4.1 3.5 - 5.2 g/dL 12/13/2024 10:27 AM CDT [facility] - . [facility] BILIRUBIN TOTAL 0.6 0.2 - 1.1 mg/dL 12/13/2024 10:27 AM CDT [facility] - . [facility] ALKALINE PHOSPHATASE 63 35 - 104 U/L 12/13/2024 10:27 AM CDT [facility] AST 20 <33 U/L 12/13/2024 10:27 AM CDT [facility] - . [facility] ALT 17 <34 U/L 12/13/2024 10:27 AM CDT [facility] GFR >60 mL/min/1.7 3 sq meter 12/13/2024 10:27 AM T [facility] Comment:eGFR calculated with 2020 CKD-EPI equation. Vegetarian diet, extremely high or low muscle mass, and may affect results. Cystatin C with Glomerular Filtration Rate is a suitable alternative for these patients. ANION GAP 11 8 - 16 mmol/L 12/13/2024 10:27 AM [facility] Blood Venipuncture / Unknown 12/13/2024 9:28 AM CDT 12/13/2024 9:41 AM CDT Narrative [facility] - 12/13/2024 10:27 AM CDT Samples containing indocyanine green cause interferences on Total and/or Direct Bilirubin and must not be measured. us Katelin Benítez MD CHEMISTRY ORDERABLES Final Resul t [id number] [address] [place] [address] * MAMMO SCRN BILAT 3D KEITH W OR WO CAD (09/09/2023 7:14 AM OVEN BAKER) Anatomical Region Laterality Modality Breast Bilateral Mammography 09/09/2023 7:14 AM OVEN BAKER Impressions 09/09/2023 11:11 AM OVEN BAKER IMPRESSION: No mammographic evidence of malignancy. RECOMMENDATIONS: Routine screening mammogram in one year. DICTATION LOCATION: [facility] Narrative 09/09/2023 11:11 AM OVEN BAKER BILATERAL FULL-FIELD DIGITAL SCREENING MAMMOGRAM WITH CAD WITH 3D TOMOSYNTHESIS DATE: 09/09/2023 7:14 AM HISTORY: Routine screening. TECHNIQUE: Full-field digital craniocaudal and mediolateral oblique projections of both breasts were obtained. Low-dose full-field digital breast tomosynthesis examination was performed with 2D and 3D acquisitions. Examination is read in conjunction with computer aided detection. COMPARISON: 2019 BREAST COMPOSITION: The breasts are heterogeneously dense, which may obscure small masses. FINDINGS: No suspicious mass, suspicious microcalcifications, or architectural distortion in either breast is identified. Since the prior study, there has been no significant interval change. Vascular calcifications are seen in both breasts. The computer aided diagnosis detects no significant abnormality. OVERALL FINAL ASSESSMENT: BI-RADS CATEGORY 2: Benign findings Procedure Note Franco Simon MD - 09/09/2023 BILATERAL FULL-FIELD DIGITAL SCREENING MAMMOGRAM WITH CAD WITH 3D TOMOSYNTHESIS DATE: 09/09/2023 7:14 AM HISTORY: Routine screening. TECHNIQUE: Full-field digital craniocaudal and mediolateral oblique projections of both breasts were obtained. Low-dose full-field digital breast tomosynthesis examination was performed with 2D and 3D acquisitions. Examination is read in conjunction with computer aided detection. COMPARISON: 2019 BREAST COMPOSITION: The breasts are heterogeneously dense, which may obscure small masses. FINDINGS: No suspicious mass, suspicious microcalcifications, or architectural distortion in either breast is identified. Since the prior study, there has been no significant interval change. Vascular calcifications are seen in both breasts. The computer aided diagnosis detects no significant abnormality. OVERALL FINAL ASSESSMENT: BI-RADS CATEGORY 2: Benign findings IMPRESSION: No mammographic evidence of malignancy. RECOMMENDATIONS: Routine screening mammogram in one year. DICTATION LOCATION: [facility] Katelin Benítez MD MAMMO ORDERABLES Final Result from Last 3 Months or Most Recently Relevant to Health Maintenance Insurance MEDICARE PART A HOSPITAL ONLY [employer] SIGNATURE ADMIN [employer] [facility] Advance Directives For more information, please contact: [phone] Documents on File Type Date Recorded Patient Director Sanitation Bureau Expl anation Advance Directive POA 08/15/2022 3:45 PM * Full Code (Latest Code Status on File) Date Activated Date Inactivated Comments 09/13/2022 7:11 AM 09/13/2022 3:30 PM * Full Code Date Activated Date Inactivated Comments 08/09/2022 9:53 PM 08/12/2022 8:01 PM * Full Code Date Activated Date Inactivated Comments 08/09/2022 4:06 PM 08/09/2022 9:53 PM * Full Code Date Activated Date Inactivated Comments 08/09/2022 3:03 PM 08/09/2022 4:06 PM Care Teams Medical Technologist Generalist Relationship Specialty Start Date End Date Robin Diaz DO [address] [facility] [address] [place] [address] PCP - General Internal Medicine 07/05/19
--- OUTSIDE RECORDS SUMMARY | 2025-01-25 15:36 | XMS_ITS ---
Author Organization [employer] Address [address] [place] [address] [address] [place] [address] Care Team Providers Care Diving Coach Name Role Phone Robin Diaz DO Primary Care Provider Unavailabl Gaston Crow Unavailable [phone] Trae Oliveira Unavailable Unavailable Encounters Encounter Location Date Provider Diagnosis [facility], [address] [place] [address] 09/19/2024 Gaston Lazo Plan Of Treatment No Information Progress Notes * Christa GUAJARDO LDOB:1950 (73 yo F)Acc No.[id number]:09/19/2024 Patient: Christa PALUMBO :1950 A ge:73 Y S ex:Female Address:[address] [place] [address], [place] [address] * true * Date: Generated for Printi ng/Faxing/eTransmitting on: 0 01/25/2025 03:35 PM CDT
--- OUTSIDE RECORDS SUMMARY | 2025-01-25 15:36 | XMS_ITS ---
Author Organization [employer], [facility] Address [address] [place] [address] [address] [place] [address] Care Team Providers Care Manager Product Marketing Name Role Phone Robin Diaz DO Primary Care Provider UnavailGatson Norman Unavailable [phone] Trae Oliveira Unavailable Unavailable REASON FOR VISIT 09/01 Suprep Medications Medication SIG (Take, Route, Frequency, Duration) Notes Start Date End Date Status Na Sulfate-K Sulfate-Mg Sulf 17.5-3.13-1.6 GM/177ML ML Orally Twice a day for 1 days 05/13/2024 Active Encounters Encounter Location Date Provider Diagnosis [facility], [address] [place] [address] 05/10/2024 Gaston Lazo Plan Of Treatment Medication Medication Name Sig Start Date Stop Date Notes Na Sulfate-K Sulfate-Mg Sulf 17.5-3.13-1.6 GM/177ML ML Orally Twice a day for 1 days 05/13/2024 Progress Notes * Christa GUAJARDO LDOB:1950 (73 yo F)Acc No.[id number]:05/10/2024 Patient: Christa Hensley :1950 A ge:73 Y S ex:Female Address:[address] [place] [address], [place] [address] * Refills Start Na Sulfate-K Sulfate-Mg Sulf Solution, 17.5-3.13-1.6 GM/177ML, Orally, 1 Kit, ML, Twice a day, 1 days, Refills=0 * true * Date: Generated for Areli william/Rebecca/Susu on: 0 01/25/2025 03:36 PM CDT
--- OUTSIDE RECORDS SUMMARY | 2025-01-25 15:36 | XMS_ITS ---
Author Organization [employer] [facility] Address [address] [place] [address] Care Team Providers Care High Voltage Electrician Name Role Phone Robin Diaz DO Primary Care Provider Active Problems Problem Noted Date Diagnosed Date Primary osteoarthritis of right knee 09/21/2024 Primary osteoarthritis of left knee 09/21/2024 Malignant neoplasm of ascending colon 09/05/2022 Cancer of ascending colon 08/12/2022 Current Treatment and Therapy Plans No current plan information found. Past Treatment and Therapy Plans ONCOLOGY THERAPY PLAN Plan Name Start Date Discontinue Date Treatment Medications Discontinue Reason Plan Provider OP FLUSH PROTOCOL CENTRAL LINES (PICC, CVC, IMPLANTED PORT) 09/19/2022 09/02/2023 No medications scheduled. Other Katelin Benítez MD ONCOLOGY TREATMENT Plan Name Start Date Discontinue Date Treatment Medications Discontinue Reason Plan Provider Cycles OP ONC COLON_F OLFOXM_ EVERY 14 DAYS 09/17/2004/16/2024 fluorouracil (5-FU) continuous infusionfluoruracil (5-FU) injectable syringeleucovorin (WELLCOVORIN) IVPBoxaliplatin (ELOXATIN) IVPB Therapy Complete Katelin Benítez MD 2 of 12 cycles started Lifetime Dose Tracking * Chemical Lifetime Dose Automatic Entry Manual Entr y Effective Dose 116.35 mSv 116.35 mSv 0 mSv Total DLP 9,196.24 DLP 9,196.24 DLP 0 DLP CTDIvol Max 138.31 mGy 138.31 mGy 0 mGy CTDIvol Min 76.94 mGy 76.94 mGy 0 mGy
--- OUTSIDE RECORDS SUMMARY | 2025-01-25 15:36 | XMS_ITS ---
Author Organization [employer] Address [address] [place] [address] Care Team Providers Care Refractory Worker Name Role Phone Robin Diaz DO Primary Care Provider UnavailGaston Norman Unavailable [phone] Trae Oliveira Unavailable Unavailable Allergies Allergen (clinical drug ingredient) Drug/Non Drug Allergy documented on EMR Reaction Allergy Type Onset Date Status Penicillin Shortness of Breath Drug Allergy active REASON FOR VISIT Screen, hx of colon polyps 5ft11 225 Medications Medication SIG (Take, Route, Frequency, Duration) Notes Start Date End Date Status Na Sulfate-K Sulfate-Mg Sulf 17.5-3.13-1.6 GM/177ML ML Orally Twice a day for 1 days 05/13/2024 Active Problems Problem Type SNOMED Code ICD Code Onset Dates Problem Status W/U Status Risk Notes Problem Diverticulosis of colon (551909015) Diverticulosis of colon (K57.30) Active confirmed Encounters Encounter Location Date Provider Diagnosis [facility] [address] [place] [address] 09/01/2024 Gasotn Lazo Colon cancer screeni ng Z12.11 ; History of colon cancer Z85.038 ; Rectal polyp K62.1 and Diverticulosis of colon K57.30 Assessments Encounter Date Diagnosis (ICD Code) Assessment Notes Treatment Notes Treatment Clinical Notes Section Notes 09/01/2024 Colon cancer screening (ICD-10 - Z12.11) 09/01/2024 History of colon cancer (ICD-10 - Z85.038) 09/01/2024 Rectal polyp (ICD-10 - K62.1) 09/01/2024 Diverticulosis of colon (ICD-10 - K57.30) Plan Of Treatment Next Appt Details Follow Up: Colonoscopy 2 yea rs, Reason: Progress Notes * Christa GUAJARDO LDOB:1950 (73 yo F)Acc No.[id number]:09/01/2024 Patient: Christa PALUMBO Provider: Balaji Lazo M.D. :1950 A ge:73 Y S ex:Female Date:09/01/2024 Address:[address] [place] [address] Pcp:Robin Diaz DO Subjective: * Chief Complaints: * S creen, hx of colon polyps 5ft11 225 * Medical History: * Surgical History: C holecystectomy Cataract Surgery Colon / Bowel Surgery Eye Surgery * Hospitalization/Major Diagno stic Procedure: * Medications: T akingNa Sulfate-K Sulfate-Mg Sulf 17.5-3.13-1.6 GM/177ML Solution ML Orally Twice a day Taking Na Sulfate-K Sulfate-Mg Sulf 17.5-3.13-1.6 GM/177ML Solution ML Orally Twice a day * Allergies: P enicillin: Shortness of Breath - Allergy Objective: * Vitals: Assessment: * Assessment: 1. C olon cancer screening - Z12.11 (Primary) 2 . H istory of colon cancer - Z85.038 3 . R ectal polyp - K62.1 4 . D iverticulosis of colon - K57.30 Plan: * Treatment: * Procedure Codes: 4 5385 LESION REMOVAL COLONOSCOPY, Modifiers: PT * Follow Up: C olonoscopy 2 years * Images: * R CARRIER INSPECTOR Sign off status: Completed true * Provider: Balaji Lazo M.D. Date: 11/01/2023 Generated for Printi ng/Fapetronag/eTransmitting on: 0 01/25/2025 03:35 PM CDT
--- OUTSIDE RECORDS SUMMARY | 2025-01-25 15:36 | XMS_ITS | Encounter Summary ---
Author Organization [facility] Address [address] [place] [address] Care Team Providers Care Subgrade Tester Name Role Phone Robin Diaz DO Primary Care Provider [phone] Encounter Details Date Type Department Care Team (Late st Contact Info) Description 12/17/2024 Chart Note [facility] Surgery at the [facility] [address] [place] [address] Jeramy Menendez MD [address] [place] [address] Social History Tobacco Use Types Packs/Day Years Used Date Smoking Tobacco: Former Cigarettes 1 20 0 12/14/1990 - 12/14/2010 Smokeless Tobacco: Never Alcohol Use Standard Drinks/Week Comments Yes 0 [...] on file Sexual Orientation Not on file documented as of this encounter Progress Notes * Betzy Salcido - 12/17/2024 11:04 AM CDT Surgery Location & Pending Date: [facility] 03.03.2025 Medical Clearance Sent: not requested per surgeon Cardiac Clearance Sent: not requested per surgeon Pre op labs, EKG, xray: to be done at [facility] appt made: 02.07.2025 CPT: 98253 Surgery Packet Given: handed Comments: documented in this encounter Plan of Treatment Upcoming Encounters Date Type Department Care Team (Latest Contact Info) Description 02/07/2025 9:00 AM CDT Appointment [facility] [address] [place] [phone] 03/03/2025 9:33 AM CDT Hospital Encounter [facility] Operating Room [address] [place] [phone] Jeramy Menendez MD [address] [place] [address] Primary osteoarthritis of left knee 03/03/2025 9:33 AM CDT - 03/03/2025 11:50 AM CDT Surgery [facility] Operating [address] [place] [phone] Jeramy Menendez MD [address] [place] [address] LEFT KNEE ARTHROPLASTY TOTAL REPLACEMENT 03/16/2025 8:30 AM CDT Office Visit [facility] Orthopedic Surgery at the [facility] Medicine [address] [place] [address] Jeramy Menendez MD [address] [facility] [address] [place] [address] 06/13/2025 9:00 AM CDT Appointment [facility] Imaging Services [facility] [address] [place] [phone] Katelin Benítez MD [address] [place], [place] [id number] 06/16/2025 9:35 AM CDT Office Visit [facility] Oncology and Hematology [facility] [address] [place] [address] Katelin Benítez MD [address] [place] [address] Scheduled Procedures Name Priority Associated Diagnoses Date/Ti me KNEE ARTHROPLASTY TOTAL REPLACEMENT Primary osteoarthritis of left knee 03/03/2025 9:33 AM CDT documented as of this encounter Visit Diagnoses Not on filedocumented in this encounter Care Teams Subgrade Tester Relationship Specialty Start Date End Date Robin Diaz DO [address] [place] [address] PCP - General Internal Medicine 07/05/19 documented as of this encounter
== END 2025-01-25 13:41 | disposition home or self-care (01) ==
PROVIDERS: PCP Internal Medicine; Visit Provider Nurse Practitioner
DX: Z78.0 Asymptomatic menopausal state (principal)
CPT/HCPCS: 77080